=== PATIENT | male | born 1950 | race Caucasian/White ===

== ENCOUNTER 2022-08-24 14:02 | Outpatient (CLI) | payer OTHER | END 2022-08-24 14:14 | disposition home or self-care (01) | LOC: RAD 14:02 | DX: I70.90 Unspecified atherosclerosis (principal); E78.00 Pure hypercholesterolemia, unspecified ==

== ENCOUNTER 2024-09-20 08:09 | Outpatient (CLI) | payer OTHER | END 2024-09-20 08:25 | disposition home or self-care (01) | LOC: SONOGRAMA 08:09 | PROVIDERS: ATTEND General Practice | DX: R31.29 Other microscopic hematuria (principal); R97.20 Elevated prostate specific antigen [PSA] ==